=== PATIENT | female | born 1955 | race Caucasian/White ===

== ENCOUNTER 2022-03-30 17:11 | Emergency (ER) | payer MEDICARE ==
[2022-03-30 17:38] VITALS: RESP 16
--- NOTE | 2022-03-30 19:09 | ED ---
General Adult HPI - General Chief complaint: Dizziness Stated complaint: Fall-Dizziness,Headache/pressure in ears Time Seen by Provider: 03/30/22 19:07 Source: patient Mode of arrival: wheelchair Limitations: no limitations - History of Present Illness Initial comments: 66-year-old female presents the emergency department with dizziness. States that her symptoms started today. She has sinus pressure and ear pressure. Feels as if she is under water. She has a room spinning sensation which is worse when she moves her head and sits up. No history of vertigo in the past. Denies any head trauma. No unilateral numbness or weakness. No history of stroke. Denies any headaches or visual changes. Denies any fevers. No chest pain or shortness of breath admits to some nausea without vomiting. States that the dizziness did make her fall and she suffered an abrasion to her right elbow. Denies any elbow pain. She is not he blood thinners. No other alleviating, precipitating modifying factors - Related Data Home Medications Medication Instructions Recorded Confirmed Escitalopram [Lexapro] 20 mg PO DAILY 03/30/22 03/30/22 Losartan [Cozaar] 25 mg PO DAILY 03/30/22 03/30/22 Rosuvastatin [Crestor] 20 mg PO DAILY 03/30/22 03/30/22 metFORMIN HCL 1,000 mg PO BID 03/30/22 03/30/22 Previous Rx's Medication Instructions Recorded Fluticasone Nasal [place] [Flonase 2 spray EA NOSTRIL DAILY #16 gm 03/30/22 Nasal [place]] Meclizine [Antivert] 25 mg PO TID PRN #20 tab 03/30/22 predniSONE [Deltasone] 20 mg PO BID #10 tab 03/30/22 Allergies Allergy/AdvReac Type Severity Reaction Status Date / Time Penicillins Allergy Severe Rash/Hives Verified 03/30/22 20:30 Review of Systems ROS Statement: Those systems with pertinent positive or pertinent negative responses have been documented in the HPI. ROS Other: All systems not noted in ROS Statement are negative. Past Medical History Past Medical History: Diabetes Mellitus, Hypertension Additional Past Medical History / Comment(s): pneumothorax History of Any Multi-Drug Resistant Organisms: None Reported Past Surgical History: Appendectomy, Section, Orthopedic Surgery Additional Past Surgical History / Comment(s): knee surgery, lung surgery Past Psychological History: Anxiety Smoking Status: Current every day smoker Past Alcohol Use History: None Reported Past Drug Use History: None Reported General Exam Limitations: no limitations General appearance: alert, in no apparent distress Head exam: Present: atraumatic, normocephalic, normal inspection Eye exam: Present: normal appearance, PERRL, EOMI, nystagmus (horizontal). Absent: scleral icterus, conjunctival injection, periorbital swelling ENT exam: Present: normal exam, mucous membranes moist Neck exam: Present: normal inspection. Absent: tenderness, meningismus, lymphadenopathy Respiratory exam: Present: normal lung sounds bilaterally. Absent: respiratory distress, wheezes, rales, rhonchi, stridor Cardiovascular Exam: Present: regular rate, normal rhythm, normal heart sounds. Absent: systolic murmur, diastolic murmur, rubs, gallop, clicks GI/Abdominal exam: Present: soft, normal bowel sounds. Absent: distended, tenderness, guarding, rebound, rigid Extremities exam: Present: normal inspection, full ROM, normal capillary refill. Absent: tenderness, pedal edema, joint swelling, calf tenderness Back exam: Present: normal inspection Neurological exam: Present: alert, oriented X3, CN II-XII intact, other (finger to nose symmetric. no pronator drift. no truncal ataxia) Psychiatric exam: Present: normal affect, normal mood Skin exam: Present: warm, dry, intact, normal color. Absent: rash Course Vital Signs 03/30/22 03/30/22 03/30/22 17:32 19:34 22:29 Temperature 98.1 F 97.9 F Pulse Rate 79 88 78 Respiratory 16 16 16 Rate Blood Pressure 120/70 138/85 141/82 O2 Sat by Pulse 98 98 98 Oximetry EKG Findings - EKG Comments: EKG Findings:: EKG demonstrates sinus rhythm with a rate of 78. LA interval 159. QRS 96. QTC of 342. No acute ST segment elevations or depressions Medical Decision Making - Medical Decision Making Upon arrival patient was placed into room 4. Thorough history and physical exam was performed. Patient was given 15 mg of meclizine. Laboratory studies are conducted and reviewed. Patient does request to be tested for Covid which is negative. CT the head is performed which demonstrates no acute process. Patient is reevaluated reports that her symptoms are almost entirely improved. Feels comfortable discharge home at this time. She will be given a prescription for meclizine, prednisone and Flonase for at home. Instructed to the medications as directed and follow-up with her doctor. Should her symptoms persist she should be reevaluated. Patient agreed to this and she was discharged home in stable condition - Lab Data Result diagrams: 03/30/22 19:17 03/30/22 19:17 Lab Results 03/30/22 03/30/22 03/30/22 Range/Units 19:17 19:17 19:17 WBC 8.6 (3.8-10.6) k/uL RBC 4.77 (3.80-5.40) m/uL Hgb 14.5 (11.4-16.0) gm/dL Hct 43.6 (34.0-46.0) % MCV 91.5 (80.0-100.0) fL MCH 30.3 (25.0-35.0) pg MCHC 33.2 (31.0-37.0) g/dL RDW 12.8 (11.5-15.5) % Plt Count 170 (150-450) k/uL MPV 7.5 Neutrophils % 70 % Lymphocytes % 22 % Monocytes % 5 % Eosinophils % 2 % Basophils % 1 % Neutrophils # 6.1 (1.3-7.7) k/uL Lymphocytes # 1.9 (1.0-4.8) k/uL Monocytes # 0.4 (0-1.0) k/uL Eosinophils # 0.1 (0-0.7) k/uL Basophils # 0.1 (0-0.2) k/uL Sodium 137 (137-145) mmol/L Potassium 4.3 (3.5-5.1) mmol/L Chloride 101 (98-107) mmol/L Carbon Dioxide 28 (22-30) mmol/L Anion Gap 8 mmol/L BUN 15 (7-17) mg/dL Creatinine 0.89 (0.52-1.04) mg/dL Est GFR (CKD-EPI)AfAm 78 (>60 ml/min/1.73 sqM) Est GFR (CKD-EPI)NonAf 68 (>60 ml/min/1.73 sqM) Glucose 146 H (74-99) mg/dL Calcium 9.2 (8.4-10.2) mg/dL Total Bilirubin 0.5 (0.2-1.3) mg/dL AST 23 (14-36) U/L ALT 17 (4-34) U/L Alkaline Phosphatase 82 (38-126) U/L Troponin I <0.012 (0.000-0.034) ng/mL Total Protein 6.7 (6.3-8.2) g/dL Albumin 4.1 (3.5-5.0) g/dL Coronavirus (PCR) (Not Detectd) 03/30/22 Range/Units 20:46 WBC (3.8-10.6) k/uL RBC (3.80-5.40) m/uL Hgb (11.4-16.0) gm/dL Hct (34.0-46.0) % MCV (80.0-100.0) fL MCH (25.0-35.0) pg MCHC (31.0-37.0) g/dL RDW (11.5-15.5) % Plt Count (150-450) k/uL MPV Neutrophils % % Lymphocytes % % Monocytes % % Eosinophils % % Basophils % % Neutrophils # (1.3-7.7) k/uL Lymphocytes # (1.0-4.8) k/uL Monocytes # (0-1.0) k/uL Eosinophils # (0-0.7) k/uL Basophils # (0-0.2) k/uL Sodium (137-145) mmol/L Potassium (3.5-5.1) mmol/L Chloride (98-107) mmol/L Carbon Dioxide (22-30) mmol/L Anion Gap mmol/L BUN (7-17) mg/dL Creatinine (0.52-1.04) mg/dL Est GFR (CKD-EPI)AfAm (>60 ml/min/1.73 sqM) Est GFR (CKD-EPI)NonAf (>60 ml/min/1.73 sqM) Glucose (74-99) mg/dL Calcium (8.4-10.2) mg/dL Total Bilirubin (0.2-1.3) mg/dL AST (14-36) U/L ALT (4-34) U/L Alkaline Phosphatase (38-126) U/L Troponin I (0.000-0.034) ng/mL Total Protein (6.3-8.2) g/dL Albumin (3.5-5.0) g/dL Coronavirus (PCR) Not Detected (Not Detectd) Disposition Clinical Impression: Vertigo, Nasal congestion Disposition: HOME SELF-CARE Condition: Stable Instructions (If sedation given, give patient instructions): Dizziness (ED) Additional Instructions: Please take the medications as directed and follow-up with your primary care doctor in 2-4 days. Return to the emergency department for any new or worsening symptoms Prescriptions: Meclizine [Antivert] 25 mg PO TID PRN #20 tab PRN Reason: Vertigo predniSONE [Deltasone] 20 mg PO BID #10 tab Fluticasone Nasal [place] [Flonase Nasal [place]] 2 spray EA NOSTRIL DAILY #16 gm Is patient prescribed a controlled substance at d/c from ED?: No Referrals: Richie Mcmahon MD [Primary Care Provider] - 1-2 days Time of Disposition: 21:49
[2022-03-30 19:25] LABS: Basophils # (A) 0.1 k/uL (0-0.2); Basophils % (A) 1 %; Eosinophils # (A) 0.1 k/uL (0-0.7); Eosinophils % (A) 2 %; HCT 43.6 % (34.0-46.0); HGB 14.5 gm/dL (11.4-16.0); Lymphocytes # (A) 1.9 k/uL (1.0-4.8); Lymphocytes % (A) 22 %; MCH 30.3 pg (25.0-35.0); MCHC 33.2 g/dL (31.0-37.0); MCV 91.5 fL (80.0-100.0); Mean Platelet Volume 7.5; Monocytes # (A) 0.4 k/uL (0-1.0); Monocytes % (A) 5 %; Neutrophils # (A) 6.1 k/uL (1.3-7.7); Neutrophils % (A) 70 %; Platelet Count 170 k/uL (150-450); RBC 4.77 m/uL (3.80-5.40); RDW 12.8 % (11.5-15.5); WBC 8.6 k/uL (3.8-10.6)
[2022-03-30] MEDS ORDERED: MECLIZINE 12.5 MG TAB PO STA (19:26)
[2022-03-30] MEDS ORDERED: SODIUM CHLORIDE 0.9% 1,000 ML IV ONE (19:27)
[2022-03-30 19:55] LABS: Albumin 4.1 g/dL (3.5-5.0); Calcium 9.2 mg/dL (8.4-10.2); Potassium 4.3 mmol/L (3.5-5.1); Total Bilirubin 0.5 mg/dL (0.2-1.3); Total Protein 6.7 g/dL (6.3-8.2)
--- NOTE | 2022-03-30 19:56 | CT ---
EXAMINATION TYPE: CT brain wo con DATE OF EXAM: 03/30/2022 COMPARISON: None HISTORY: dizziness CT DLP: 1121.4 mGycm Automated exposure control for dose reduction was used. Ventricles have normal size. There is no mass effect or midline shift. No sign of intracranial hemorr claire. Calvarium is intact. No evidence of cerebral edema. Skull base is intact. IMPRESSION: Negative unenhanced head CT scan
[2022-03-30] MEDS ORDERED: predniSONE 20 MG TAB PO STA (21:40)
[2022-03-30 22:30] VITALS: BP 141/82; PULSE 78; TEMP 97.9
== END 2022-03-30 22:29 | disposition home or self-care (01) ==
LOC: EDSEX → EC 17:11
DX: R42 Dizziness and giddiness (principal); R09.81 Nasal congestion; F17.200 Nicotine dependence, unspecified, uncomplicated; I10 Essential (primary) hypertension; E11.9 Type 2 diabetes mellitus without complications; Z88.0 Allergy status to penicillin; Z79.899 Other long term (current) drug therapy; Z20.822 Contact with and (suspected) exposure to COVID-19; Z79.84 Long term (current) use of oral hypoglycemic drugs
CPT/HCPCS: 36415; 93005; 80053; 84484; 85025; 87635; 70450; 99284; 96360; 96361; J7512

== ENCOUNTER 2024-08-07 10:27 | Emergency (ER) | payer MEDICARE ==
--- NOTE | 2024-08-07 10:57 | ED ---
Fall HPI - General Stated Complaint: fell R arm injury Time Seen by Provider: 08/07/24 10:57 Source: patient, RN notes reviewed Mode of arrival: ambulatory Limitations: no limitations - History of Present Illness Initial Comments: 69-year-old female presented to the ER with a chief complaint of a fall. Patient states she was at [employer] when she excellently tripped causing her to fall on her right shoulder. She states she needed assistance getting up. She denies head injury or loss of consciousness. No blood thinner use. Patient is reporting most pain to her right shoulder, neck and arm. She was able to drive herself home but is unsure how. She does report nausea and 1 episode of vomiting but believes this is due to pain. She has not taken anything for pain at this time. No other injuries or complaints. - Related Data Home Medications Medication Instructions Recorded Confirmed Escitalopram [Lexapro] 20 mg PO DAILY 03/30/22 03/30/22 Losartan [Cozaar] 25 mg PO DAILY 03/30/22 03/30/22 Rosuvastatin [Crestor] 20 mg PO DAILY 03/30/22 03/30/22 metFORMIN HCL 1,000 mg PO BID 03/30/22 03/30/22 Previous Rx's Medication Instructions Recorded Fluticasone Nasal [place] [Flonase 2 spray EA NOSTRIL DAILY #16 gm 03/30/22 Nasal [place]] Meclizine [Antivert] 25 mg PO TID PRN #20 tab 03/30/22 predniSONE [Deltasone] 20 mg PO BID #10 tab 03/30/22 HYDROcodone/APAP 5-325MG [[place] 5] 1 each PO Q6HR PRN #12 tab 08/07/24 Allergies Allergy/AdvReac Type Severity Reaction Status Date / Time Penicillins Allergy Severe Rash/Hives Verified 08/07/24 11:12 Review of Systems ROS Statement: Those systems with pertinent positive or pertinent negative responses have been documented in the HPI. ROS Other: All systems not noted in ROS Statement are negative. Past Medical History Past Medical History: Diabetes Mellitus, Hypertension Additional Past Medical History / Comment(s): pneumothorax History of Any Multi-Drug Resistant Organisms: None Reported Past Surgical History: Appendectomy, Section, Orthopedic Surgery Additional Past Surgical History / Comment(s): knee surgery, lung surgery Past Psychological History: Anxiety Smoking Status: Current every day smoker Past Alcohol Use History: None Reported Past Drug Use History: None Reported General Exam - General Exam Comments Initial Comments: Visual Physical Exam Vital signs reviewed General: Well-appearing, nontoxic, no acute distress. Head: Normocephalic, atraumatic Eyes: PERRLA, EOMI ENT: Airway patent Chest: Nonlabored breathing Skin: No visual rash, normal skin tone Neuro: Alert and oriented 3 Musculoskeletal: No gross abnormalities General appearance: alert, in no apparent distress Head exam: Present: atraumatic, normocephalic, normal inspection Neck exam: Present: normal inspection. Absent: tenderness, meningismus, ly mphadenopathy Respiratory exam: Present: normal lung sounds bilaterally. Absent: respiratory distress, wheezes, rales, rhonchi, stridor Cardiovascular Exam: Present: regular rate, normal rhythm, normal heart sounds. Absent: systolic murmur, diastolic murmur, rubs, gallop, clicks Extremities exam: Present: tenderness (Right anterior shoulder. 2+ right radial pulse. There is anterior deformity noted to right shoulder.) Neurological exam: Present: alert, oriented X3, CN II-XII intact Skin exam: Present: warm, dry, intact, normal color. Absent: rash Course Vital Signs 08/07/24 08/07/24 11:10 13:18 Temperature 98.2 F 98.0 F Pulse Rate 77 70 Respiratory 18 18 Rate Blood Pressure 142/72 136/80 O2 Sat by Pulse 99 99 Oximetry Medical Decision Making - Medical Decision Making I performed the quick note portion of this chart. Electronically signed by Hoang Harrison PA-C Was pt. sent in by a medical professional or institution ([facility], GUIDANCE CONSULTANT, urgent care, hospital, or retirement...) When possible be specific @ -No Did you speak to anyone other than the patient for history (EMS, parent, family, police, friend...)? What history was obtained from this source @ -No Did you review nursing and triage notes (agree or disagree)? Why? @ -I reviewed and agree with nursing and triage notes Were old charts reviewed (outside hosp., previous admission, EMS record, old EKG, old radiological studies, urgent care reports/EKG's, retirement records)? Report findings @ -No old charts were reviewed Differential Diagnosis (chest pain, altered mental status, abdominal pain women, abdominal pain men, vaginal bleeding, weakness, fever, dyspnea, syncope, headache, dizziness, GI bleed, back pain, seizure, CVA, palpatations, mental health, musculoskeletal)? @ -Differential Musculoskeletal: Muscular strain, contusion, ligament sprain, fracture, arthritis, septic arthritis, bursitis, cellulitis, muscle spasm, nerve compression, DVT, arterial occlusion, herpes zoster, electrolyte abnormality, tumor.... This is not meant to be in all inclusive list EKG interpreted by me (3pts min.). @ -None done X-rays interpreted by me (1pt min.). @ -Right shoulder x-ray remarkable for a right humeral head fracture. Right wrist and elbow x-rays negative. CT interpreted by me (1pt min.). @ -None done U/S interpreted by me (1pt. min.). @ -None done What testing was considered but not performed or refused? (CT, X-rays, U/S, labs)? Why? @ -None What meds were considered but not given or refused? Why? @ -None Did you discuss the management of the patient with other professionals (professionals i.e. , PA, GUIDANCE CONSULTANT, lab, RT, psych nurse, perinatal social worker, combat control manager, teacher, tax compliance officer, field nurse case manager)? Give summary @ -No Was smoking cessation discussed for >3mins.? @ -No Was critical care preformed (if so, how long)? @ -No Were there social determinants of health that impacted care today? How? (Homelessness, low income, unemployed, alcoholism, drug addiction, transportation, low edu. Level, literacy, decrease access to med. care, senior living, rehab)? @ -No Was there de-escalation of care discussed even if they declined (Discuss DNR or withdrawal of care, Hospice)? DNR status @ -No What co-morbidities impacted this encounter? (DM, HTN, Smoking, COPD, CAD, Cancer, CVA, ARF, Chemo, Hep., AIDS, mental health diagnosis, sleep apnea, morbid obesity)? @ -None Was patient admitted / discharged? Hospital course, mention meds given and route, prescriptions, significant lab abnormalities, going to OR and other pertinent info. @ -Discharge. 69-year-old female presenting to the ER with a chief complaint of a fall. History and physical exam completed. Vitals stable. Patient in no signs of distress nontoxic-appearing. Right upper extremity neurovascular intact. There is anterior deformity to right shoulder. No other focal bony tenderness. No other injuries reported. X-rays obtained concerning of a right humeral head fracture. Patient placed in a shoulder immobilizer. IM Dilaudid given for pain control. [place] prescribed for outpatient pain management. Advise close follow-up with orthopedics, referral given. Strict return par ameters discussed. Patient discharged in stable condition with follow-up to orthopedics. Patient verbally expressed understanding and agreement with care plan. Case discussed with ED attending, Dr. Sarkar. Undiagnosed new problem with uncertain prognosis? @ -No Drug Therapy requiring intensive monitoring for toxicity (Heparin, Nitro, Insulin, Cardizem)? @ -No Were any procedures done? @ -No Diagnosis/symptom? @ -Humeral head fracture Acute, or Chronic, or Acute on Chronic? @ -Acute Uncomplicated (without systemic symptoms) or Complicated (systemic symptoms)? @ -Uncomplicated Side effects of treatment? @ -No Exacerbation, Progression, or Severe Exacerbation? @ -No Poses a threat to life or bodily function? How? (Chest pain, USA, CT, pneumonia, PE, COPD, DKA, ARF, appy, cholecystitis, CVA, Diverticulitis, Homicidal, Suicidal, threat to staff... and all critical care pts) @ -No - Radiology Data Radiology results: report reviewed, image reviewed Disposition Clinical Impression: Humeral head fracture Disposition: HOME SELF-CARE Condition: Stable Instructions (If sedation given, give patient instructions): Fall Prevention for Older Adults (ED), Proximal Humerus Fracture (ED) Additional Instructions: Follow-up with orthopedics in the next 1 to 2 days. You may take [id number] ibuprofen and Tylenol for pain control. Take [place] as needed for extreme pain. Return to the ER for any new or worsening concerns. Prescriptions: HYDROcodone/APAP 5-325MG [[place] 5] 1 each PO Q6HR PRN #12 tab PRN Reason: Pain Is patient prescribed a controlled substance at d/c from ED?: Yes When asked, does pt state using other controlled substances?: No If prescribed controlled substance>3 days was MAPS reviewed?: Prescribed <3 Days If opioid is for acute pain is fill amount 7 days or less?: Yes If Rx opioid, was Start Talking consent form obtained?: Yes Referrals: Richie Mcmahon MD [Primary Care Provider] - 1-2 days Nick Huynh MD [STAFF PHYSICIAN] - 1-2 days Time of Disposition: 12:45
[2024-08-07 11:12] VITALS: RESP 18
--- NOTE | 2024-08-07 11:38 | XR ---
Right shoulder. HISTORY: Pain following fall. COMPARISON: None. TECHNIQUE: 4 views the right shoulder were obtained. FINDINGS: There is a comminuted mildly displaced fracture of the right humeral head. The scapula and clavicle a re intact. There is mild degenerative change of the AC joint there are no soft tissue abnormalities. IMPRESSION: Fracture of the right humeral head as described above. [facility], Workstation: [facility], 08/07/2024 11:36 AM
--- NOTE | 2024-08-07 11:39 | XR ---
Right elbow. HISTORY: Pain following fall. COMPARISON: None. TECHNIQUE: 3 views of the right elbow were obtained. FINDINGS: There is no fracture, dislocation, intraosseous, intra-articular soft tissue abnormality. There is no joint effusion. IMPRESSION: No evidence of acute trauma. [facility], Workstation: [facility], 08/07/2024 11:37 AM
--- NOTE | 2024-08-07 11:40 | XR ---
Right wrist. HISTORY: Pain following fall. COMPARISON: None. TECHNIQUE: 3 views right wrist are obtained. FINDINGS: There is no fracture, dislocation, intraosseous, intra-articular or soft tissue abnormality. IMPRESSION: No significant abnormality seen. [facility], Workstation: [facility], 08/07/2024 11:38 AM
[2024-08-07] MEDS: HYDROmorphone 1 MG/ML 1 ML SYRINGE IM STA (13:11)
[2024-08-07] MEDS: ONDANSETRON ODT 4 MG TAB PO STA (13:12)
[2024-08-07 13:20] VITALS: BP 136/80; PULSE 70; TEMP 98
== END 2024-08-07 13:48 | disposition home or self-care (01) ==
LOC: EC 10:27
DX: S42.201A Unspecified fracture of upper end of right humerus, initial encounter for closed fracture (principal); W01.0XXA Fall on same level from slipping, tripping and stumbling without subsequent striking against object, initial encounter; Y92.59 Other trade areas as the place of occurrence of the external cause; Z88.0 Allergy status to penicillin; F17.200 Nicotine dependence, unspecified, uncomplicated
CPT/HCPCS: 73020; 73080; 73110; 99283; 96372; J1171